=== PATIENT | female | born 1965 | race African-American/Black ===

== ENCOUNTER → 2021-05-15 | Outpatient (CLI) | payer OTHER ==
--- NOTE | 2021-05-15 13:09 | RAD ---
Exam Date: 05/15/2021 9:52 AM XR BILATERAL HIP (WITH OR WITHOUT PELVIS) 2 VIEWS_RIGHT Indication: Reason: RIGHT HIP PAIN. / Spl. Instructions: / History: . FINDINGS/ IMPRESSION: No acute fracture or dislocation. Alignment and joint spaces are maintained in the hips bilaterally. Degenerative changes are seen in the lower lumbar spine and SI joints. The soft tissues are within normal limits. Electronically signed by: Tayo Luke MD (05/15/2021 1:07 PM) [id number]
== END ==
LOC: RAD 09:18
PROVIDERS: ATTEND Family Medicine
DX: Z02.71 Encounter for disability determination (principal); M25.551 Pain in right hip; M47.816 Spondylosis without myelopathy or radiculopathy, lumbar region; M46.1 Sacroiliitis, not elsewhere classified
CPT/HCPCS: 73502

== ENCOUNTER → 2021-10-15 | Outpatient (CLI) | payer OTHER ==
[~2021-10-15] MED LIST: LIDOCAINE 1% Multi-Dose 20 ML VIAL. INJ ONE
--- NOTE | 2021-10-15 18:40 | RAD ---
EXAM: US BREAST BIOPSY ADDL LESION, MG DIAGNOSTICUNILAT MAMMO, US BREAST BIOPSY ADDL LESION, US BREAS T BIOPSY 1ST LESION, US BREAST BIOPSY ADDL LESION 10/15/2021 12:43 PM INDICATION: 56-year-old woman with multiple right breast masses and suspicious calcifications, and a abnormal right axillary lymph node. COMPARISON: 09/18/2021, 08/21/2021 TECHNIQUE/FINDINGS: The purpose of the procedure, risks and benefits were explained to the patient. Informed consent was obtained. A timeout was performed. The patient was placed supine on the ultrasound table. The right breast masses at 4:00 6 cm the nippl e, 5:00 5 cm from nipple, and 6:00 8 cm the nipple were identified. The right breast was marked, prep ped, draped in standard sterile fashion. Attention first turned to to the mass at 4:00 6 cm from the nipple in the right breast. Skin was anes thetized with 1 percent lidocaine. Next, 4 core biopsy samples were obtained with a coaxial 14-gauge biopsy device. Samples were placed in formalin and sent to the laboratory for analysis. A S biopsy ma rker was then placed at the biopsy site under ultrasound. Attention was then turned to the mass at 5:00 5 cm the nipple in the right breast. Skin was anestheti zed with 1 percent lidocaine. Next, 4 core biopsy samples were obtained with a coaxial 14-gauge biops y device. Samples were placed in formalin and sent to the laboratory for analysis. A omega biopsy mar ker was then placed at the biopsy site under ultrasound. Attention was then turned to the mass containing calcifications at 6:00 8 cm from the nipple in the r ight breast. Skin was anesthetized with 1 percent lidocaine. Next, 3 core biopsy samples were obtaine d with a coaxial 14-gauge biopsy device. Samples were placed in formalin and sent to the laboratory f or analysis. A coil biopsy marker was then placed at the biopsy site under ultrasound. Finally, attention was turned to the right axilla. The mildly suspicious right axillary lymph node se en on 09/18/2021 was not definitively identified. A lymph node with a possible slightly thickened cor andria was seen and target for biopsy. The right axilla was marked, prepped, and draped in standard ster ile fashion. Two core biopsy samples were obtained with a coaxial 14-gauge biopsy device. Samples wer e placed in formalin and sent to the laboratory for analysis. A ribbon biopsy marker was then placed at the biopsy site under ultrasound. All of the needle were removed, pressure held for hemostasis, and skin cleansed and covered with a dr essing. Post biopsy images were obtained of all the biopsy sites and demonstrated no hematoma. The pa tient tolerated the procedure well and left in stable condition. Post clip mammogram demonstrates appropriate position of clip in the masses at 4:00 6 cm and 6:00 8 c m from the nipple. The clip placed in the mass at 5:00 5 cm from the nipple may have migrated posteri or and superior from the mass toward the mass at 4:00 6 cm the nipple. The mass is difficult to discr etely visualized due to postbiopsy changes. IMPRESSION: 1. Technically successful ultrasound-guided biopsy of right breast mass at 4:00 6 cm from the nipple and clip placement. 2. Technically successful ultrasound-guided biopsy of right breast mass at 5:00 5 cm the nipple. The clip may have migrated slightly posterior and superior from the mass. 3. Technically successful ultrasound-guided biopsy of right breast mass and calcifications at 6:00 8 cm from the nipple and clip placement. 4. Please note, there are additional suspicious focal asymmetries and calcifications seen on screenin g mammogram, with the overall extent of disease on mammogram likely spanning 9.5 cm in AP length by a t least 7 cm in mediolateral length. Consider MRI of the breasts to fully evaluate the extent of dise ase. Electronically signed by: Kelin Pierce MD (10/15/2021 6:38 PM) [id number]
--- NOTE | 2021-10-18 19:08 | PATHOLOGY ---
[facility] Accession Number: [id number] . 01 Material submitted: . PART A: breast - RIGHT BREAST MASS 4 O'CLOCK 6CMFN 1.8 CM. Modifiers: right PART B: breast - RIGHT BREAST MASS 5 O'CLOCK 5CMFN .9 CM. Modifiers: right PART C: breast - RIGHT BREAST MASS 6 O'CLOCK 8CMFN 1.5 CM. Modifiers: right PART D: breast - RIGHT AXILLARY LYMPH NODE. Modifiers: right . 02 Diagnosis: A. Breast "right mass 4:00, 6 cmfn", needle biopsy: - INVASIVE DUCTAL CARCINOMA, GRADE 3 (HIGH-GRADE), WITH MAXIMUM TUMOR SPAN OF 17 MM. - Please see cancer case summary below. . B. Breast "right mass 5:00, 5 cmfn", biopsy: - INVASIVE DUCTAL CARCINOMA, GRADE 3 (HIGH-GRADE) - DCIS, GRADE II (INTERMEDIATE GRADE), WITH SOLID, CRIBRIFORM AND COMEDO TYPES. - Fibrocystic changes. - Please see cancer case summary below. . C. Breast "right mass 6:00, 8 cmfn", biopsy: - INVASIVE DUCTAL CARCINOMA, GRADE 3 (HIGH-GRADE). - DUCTAL CARCINOMA IN SITU, GRADE III (HIGH-GRADE) SOLID AND COMEDO TYPES. - Please see cancer case summary below. . D. Lymph node "right axillary", needle biopsy: - Negative for metastatic carcinoma. . CANCER CASE SUMMARY: Biopsy invasive carcinoma of the breast Version 1.1.1.1 Protocol Posting Date: September 2021 . SPECIMEN . Procedure ___ Needle biopsy . Specimen Laterality ___ Right . TUMOR A. 4:00, 6 cm from nipple B. 5:00, 5 cm from nipple C. 6:00, 8 cm from nipple . Histologic Type ___ Invasive carcinoma of no special type (ductal) . Histologic Grade (Meigs Histologic Score) Glandular (Acinar) / Tubular Differentiation ___ Score 3 (less than 10% of tumor area forming glandular / tubular structures) Nuclear Pleomorphism ___ Score 3 (Vesicular nuclei, often with prominent nucleoli, exhibiting marked variation in size and shape, occasionally with very large and bizarre forms) Mitotic Rate ___ Score 2 Overall Grade ___ Grade 3 (scores of 8) . Ductal Carcinoma In Situ (DCIS) ___ Present Architectural Patterns ___ Comedo ___ Cribriform ___ Solid Nuclear Grade ___ Grade II (intermediate) Necrosis ___ Present, focal (small foci or single cell necrosis) ___ Present, central (expansive "comedo" necrosis) . +Lymphovascular Invasion ___ Not identified . +Microcalcifications ___ Present in DCIS . SPECIAL STUDIES . +Breast Biomarker Studies, including ER, NC, Her2, and Ki-67 will be performed on block A2, and the results will be the subject of an addendum report. . (MLK:pit; 10/18/2021) [facility] 10/18/2021 1844 Local . 02 Comment: The case is seen in co-review, with consensus, with Dr. Neftaly Portillo on 10/18/2021. . Dr. Carl Fleming is informed of the results on 10/18/2021 at approximately 14:45. (MLK:pit; 10/18/2021) . 02 Electronically signed: . Estephania De Oliveira MD, Pathologist NPI- [id number] . 01 Gross description: . A. The specimen is received in formalin, labeled "Charlene Salamanca, right breast 4:00, 6 cm FN". Received are 3 needle cores of fibrofatty tissue measuring 1.5 x 0.6 x 0.2 cm in aggregate dimensions. The specimen is submitted entirely in cassettes A1-A3. The specimen is collected at 1357 and placed into formalin at 1358 on 10/15/2021. The specimen is removed from formalin at 1950 on 10/16/2021. The total formalin fixation time is 29 hours and 52 minutes. . B. The specimen is received in formalin, labeled "Charlene Salamanca, right breast 5:00, 5 cm FN". Received are 3 needle cores of fibrofatty tissue measuring 1.8 x 0.6 x 0.2 cm in aggregate dimensions. The specimen is submitted entirely in cassettes B1-B3. The specimen is collected at 1407 and placed into formalin at 1408 on 10/15/2021. The specimen is removed from formalin at 1950 of on 10/16/2021. The total formalin fixation time is 29 hours and 42 minutes. . C. The specimen is received in formalin, labeled "Charlene Salamanca, right breast 6:00, 8 cm FN". Received are 3 needle cores of fibrofatty tissue measuring 1.5 x 0.6 x 0.2 cm in aggregate dimensions. The specimen is submitted entirely in cassettes C1-C3. The specimen is collected at 1428 and placed into formalin at 1429 on 10/15/2021. The specimen is removed from formalin at 1950 on 10/16/2021. The total formalin fixation time is 29 hours and 21 minutes. . D. The specimen is received in formalin, labeled "Charlene Salamanca, right axillary lymph node". Received are 3 needle cores of fibrofatty tissue measuring 1.7 x 0.6 x 0.2 cm in aggregate dimensions. The specimen is submitted entirely in cassettes D1-D3. The specimen is collected at 1450 and placed into formalin of 1451 on 10/15/2021. The specimen is removed from formalin at 1950 on 10/16/2021. The total formalin fixation time is 28 hours and 59 minutes. ([facility]; 10/16/2021) NRI/NRI 10/16/2021 1630 Local . 02 Microscopic: . Immunohistochemical stain results (properly controlled) AE1/AE3 (D1) - Negative AE1/AE3 (D3) - Negative . (MLK:[facility]; 10/18/2021) . 02 Pathologist provided ICD-10: C50.911, D05.11 . 02 CPT . 833486, 126004, 965393, [id number], [id number] Specimen Comment: A courtesy copy of this report has been sent to [phone], [phone] Specimen Comment: [id number] Specimen Comment: Report sent to / DR FLEMING Performed at: 01 [facility] [address], [place], [place] [id number] MD Romie Downs MD Phone: [phone] Performed at: 02 [facility] [address] [place], [place] [id number] MD Eliud Morales MD Phone: [phone]
== END | disposition home or self-care (01) ==
LOC: US 12:09
PROVIDERS: ATTEND Surgery
DX: N63.14 Unspecified lump in the right breast, lower inner quadrant (principal); C50.911 Malignant neoplasm of unspecified site of right female breast; R92.8 Other abnormal and inconclusive findings on diagnostic imaging of breast; N63.32 Unspecified lump in axillary tail of the left breast; Z88.8 Allergy status to other drugs, medicaments and biological substances
CPT/HCPCS: 19083; 19084; 38505; 76942; 77065; A4648; C1819; J3490; 88305; 88342; 88361